=== PATIENT | female | born 1965 | race Caucasian/White ===

== ENCOUNTER → 2016-11-18 | Outpatient (CLI) | payer OTHER ==
[~2016-11-18] MED LIST: CIPRO 250MG TA250 MG PO; CLARITIN 1010 MG/TAB PO; IRON325 MG PO; NEXIUM 40MG40 MG PO; NORCO 325 MG-51 TAB PO; PLAQUENIL 200M200 MG PO; RELAFEN 50500 MG/TAB PO; RESTASIS0.05% OP
== END ==
LOC: COL.RAD 08:10
DX: R16.0 Hepatomegaly, not elsewhere classified (principal)
CPT/HCPCS: A9585

== ENCOUNTER 2017-08-25 07:57 | Day surgery (SDC) | payer OTHER ==
[~2017-08-25] VITALS: Ht 157.5 cm; Wt 59.7 kg
[2017-08-25 08:15] VITALS: BP 125/83; PULSE 53; TEMP 98.4
[2017-08-25] MEDS ORDERED: PROTONIX 40MG T40 MG PO (08:28)
[2017-08-25 10:06] VITALS: BP 112/71; PULSE 51; TEMP 97.4
[2017-08-25 10:15] VITALS: BP 118/72; PULSE 53
[2017-08-25 10:30] VITALS: BP 120/74; PULSE 54
== END 2017-08-25 10:45 | disposition home or self-care (01) ==
LOC: SDCO 07:57
DX: K21.9 Gastro-esophageal reflux disease without esophagitis (principal); K22.70 Barrett's esophagus without dysplasia; Z79.899 Other long term (current) drug therapy
CPT/HCPCS: J2250; J3010